=== PATIENT | male | born 1945 | race African-American/Black ===

== ENCOUNTER → 2016-10-10 | Emergency (ER) | payer OTHER, BC ==
[~2016-10-10] MED LIST: ALLOPURINOL 100 MG TABLET (FP) PO SCH; ASPIRIN 81 MG CHEWABLE TABLETS ONE; ASPIRIN 81 MG CHEWABLE TABLETS PO ONE; ASPIRIN 81 MG CHEWABLE TABLETS PO SCH; ATORVASTATIN CA 20 MG TABLET (FP) PO SCH; HEPARIN NA (PORCINE) 5,000 UNITS/ML 1ML VIAL SQ SCH; HYDROCHLOROTHIAZIDE 12.5 MG CAPSULE (FP) PO SCH; LATANOPROST 0.005% OPHTH SOLN 2.5ML BOTTLE OU SCH; LOSARTAN POTASSIUM 50 MG TABLET (FP) PO SCH; METOPROLOL SUCCINATE 100 MG TAB.SR.24H (FP) PO SCH; PANTOPRAZOLE 20 MG TABLET (FP) PO SCH; PATIENT'S OWN MEDICATION (NON-FORMULARY) (Losartan/Hydrochlorothiazide [Losartan-Hctz 100- PO SCH
[2016-10-10 13:31] VITALS: TEMP 98; BMI 28.5
--- NOTE | 2016-10-10 14:27 | PDOC ---
History of Present Illness - History of Present Illness Initial Comments: 10/10/16 19:05 Patient is a 71 year old male with significant medical hx of CAD s/p stent x1. HTN, and HLD who has been sent to the ED by PMD for abnormal stress test. The patient had a treadmill stress test done on 10/05; the patient states he was able to finish it to the end. Yesterday the patient received a call from his PMD who reported that his stress test results were abnormal and he needed to go to the ER. The patient complains of dehydration and states he doesnt drink enough water. Denies chest pain, shortness of breath, pain, nausea, vomiting, dyspnea, or lightheadedness. PMD: Maurice Agarwal MD <Anastasiya Zuleta - Last Filed: 10/10/16 19:06> <Clifford Garrett - Last Filed: 10/10/16 20:00> - General Chief Complaint: Revisit,Radiology Variance Stated Complaint: (PCP SENT) STRESS TEST Time Seen by Provider: 10/10/16 14:21 Past History <Anastasiya Zuleta - Last Filed: 10/10/16 19:06> - Psycho/Social/Smoking Cessation Hx Suicidal Ideation: No Smoking History: Never smoked <Clifford Garrett - Last Filed: 10/10/16 20:00> - Past Medical History Allergies/Adverse Reactions: Allergies Allergy/AdvReac Type Severity Reaction Status Date / Time No Known Allergies Allergy Verified 10/10/16 13:25 Home Medications: Ambulatory Orders Allopurinol [Zyloprim -] 100 mg PO DAILY 10/10/16 Aspirin [ASA -] 81 mg PO DAILY 10/10/16 Atorvastatin Ca [Lipitor] 20 mg PO HS 10/10/16 Losartan/Hydrochlorothiazide [Losartan-Hctz 100-12.5 mg Tab] 1 each PO DAILY 10/23 Metoprolol Succinate [Toprol Xl -] 100 mg PO DAILY 10/10/16 Omeprazole 20 mg PO DAILY 10/10/16 Travoprost [Travatan Z] 1 drop OU DAILY 10/10/16 Review of Systems - Review of Systems Comments:: 10/10/16 19:05 CONSTITUTIONAL: Reported: Dehydrated No reported: Fever, Chills, Diaphoresis, Generalized Weakness, Malaise, Loss of Appetite HEENT: No reported: Rhinorrhea, Nasal Congestion, Throat Pain, Throat Swelling, Difficulty Swallowing, Mouth Swelling, Ear Pain, Eye Pain, Visual Changes CARDIOVASCULAR: No reported: Chest Pain, Syncope, Palpitations, Irregular Heart Rate, Lightheadedness, Peripheral Edema RESPIRATORY: No reported: Cough, Shortness of Breath, SOB with Exertion, Orthopnea, Wheezing , Stridor, Hemoptysis GASTROINTESTINAL: No reported: Abdominal pain, Abdominal Distension, Nausea, Vomiting, Diarrhea, Constipation, Melena, Hematochezia GENITOURINARY: No reported: Dysuria, Frequency, Urgency, Hesitancy, Flank Pain, Genital Pain MUSCULOSKELETAL: No reported: Myalgia, Arthralgia, Joint Swelling, Back pain, Neck Pain SKIN: No reported: Rash, Itching, Pallor HEMEATOLOGIC/IMMUNOLOGIC: No reported: Easy Bleeding, Easy Bruising, Lymphadenopathy, Frequent infections ENDOCRINE: No reported: Unexplained Weight Gain, Unexplained Weight Loss, Heat Intolerance , Cold Intolerance NEUROLOGIC: No reported: Headache, Focal Weakness, Paresthesias, Vertigo, Lightheadedness, Unsteady Gait, Seizure, Mental Status Changes, Incontinence PSYCHIATRIC: No reported: Anxiety, Depression <Anastasiya Zuleta - Last Filed: 10/10/16 19:06> *Physical Exam - Vital Signs Last Vital Signs Temp Pulse Resp BP Pulse Ox 98 F 83 19 144/88 99 10/10/16 13:26 10/10/16 13:26 10/10/16 13:26 10/10/16 13:26 10/10/16 13:26 - Physical Exam Comments: 10/10/16 19:05 GENERAL: The patient is awake, alert, and fully oriented, Nontoxic - in no acute distress. HEAD: Normocephalic, atraumatic. EYES: extraocular movements intact, sclera anicteric, conjunctiva clear. ENT: Normal voice, Moist mucous membranes. NECK: Normal range of motion, supple LUNGS: Breath sounds equal, clear to auscultation bilaterally. No wheezes, no rhonchi, no rales. HEART: Regular rate and rhythm, normal S1 and S2 without murmur, rub or gallop. ABDOMEN: Soft, nontender, normoactive bowel sounds. No guarding, no rebound. . No CVA tenderness EXTREMITIES: Normal range of motion, no edema. No clubbing or cyanosis. No cords, erythema, or tenderness. NEUROLOGICAL: No facial assymetry, Normal speech, PSYCH: Normal mood, normal affect. SKIN: Warm, Dry, normal turgor <Anastasiya Zuleta - Last Filed: 10/10/16 19:06> - Vital Signs Last Vital Signs Temp Pulse Resp BP Pulse Ox 98 F 83 19 144/88 99 10/10/16 13:26 10/10/16 13:26 10/10/16 13:26 10/10/16 13:26 10/10/16 13:26 <Clifford Garrett - Last Filed: 10/10/16 20:00> Heart Score/ECG Review - ECG Impressions Comment:: 10/10/16 19:59 Twelve-lead EKG was performed and reviewed by me. There is normal sinus rhythm with a normal rate. Rate of 77 LVH <Clifford Garrett - Last Filed: 10/10/16 20:00> ED Treatment Course - LABORATORY CBC & Chemistry Diagram: 10/10/16 14:39 10/10/16 14:39 - RADIOLOGY Radiograph Interpretation: 10/10/16 19:05 Chest X-Ray Impression: No acute pathology. Reported By: Dayton Richards MD - Consult/PCP Time Called: 13:40 Case discussed with personal care physician: Maurice Agarwal <Anastasiya Zuleta - Last Filed: 10/10/16 19:06> - LABORATORY CBC & Chemistry Diagram: 10/10/16 14:39 10/10/16 14:39 <Clifford Garrett - Last Filed: 10/10/16 20:00> Medical Decision Making - Medical Decision Making 10/10/16 15:17 71y M sent to ED for failed stress test as outpatient. pt currently asymptmatic no recent cp, sob/jefferson. will discuss with dr. burnett regarding plan 10/10/16 16:[address] burnett requests consult with dr. castaneda and kris for admission to [facility] Case discussed in detail with admitting physician including history, physical exam and ancillary studies. Admitting physician has assumed care for the patient, will follow all pending diagnostics and will complete the evaluation and treatment. 10/10/16 16:[address] Barbosa (cardiology) and dr. witt - states the pt can fu with dr. Rao as outpatient for outpatient stress. The pt states as he does not have any pain or disocmfort, he does not want to stay,e specially as the stress test was on . Offered hospitalzation for further workup but pt decilnes and he would prefer outpatient workup if possible. will dc the pt withoutptint fu with dr. Rao I discussed the physical exam findings, ancillary test results and final diagnoses with the patient. I answered all of the patient's questions. The patient was satisfied with the care received and felt comfortable with the discharge plan and treatment plan. The patient will call their primary care physician within 24 hours to arrange follow-up and will return to the Emergency Department with any new, persistent or worsening symptoms. <Clifford Garrett - Last Filed: 10/10/16 20:00> *DC/Admit/Observation/Transfer - Attestations Scribe Attestion: 10/10/16 19:06 Documentation prepared by Anastasiya Zuleta, acting as medical records receptionist for Clifford Garrett MD. <Anastasiya Zuleta - Last Filed: 10/10/16 19:06> - Discharge Dispostion Admit: No <Clifford Garrett - Last Filed: 10/10/16 20:00> Diagnosis at time of Disposition: Chest pain Qualifiers: Chest pain type: unspecified Qualified Code(s): R07.9 - Chest pain, unspecified - Discharge Dispostion Disposition: HOME Condition at time of disposition: Improved - Referrals Referrals: Maurice Agarwal MD [Primary Care Provider] - Star Rao MD [Staff Physician] - - Patient Instructions Printed Discharge Instructions: DI for Chest Pain Additional Instructions: Return to the emergency department immediately with ANY new, persistent or worsening symptoms. You MUST call and follow up with hematology nurse tomorrow for further evaluation of your symptoms. Results were discussed with you. Please make sure your doctor reviews the results of your emergency evaluation.
[2016-10-10 14:45] VITALS: BP 155/86; PULSE 76
[2016-10-10 15:32] LABS: BASOPHIL 0.2 % (0-2.0); EOSINOPHIL 1.8 % (0-4.5); MCHC 33.4 g/dl (32.0-35.9); MEAN CELL VOLUME 98.8 fl (80-96); MEAN PLT VOLUME 8.9 fl (7.5-11.1); NEUTROPHILS 55.4 % (42.8-82.8); PLATELET COUNT 190 K/MM3 (134-434); RDW 13.6 % (11.9-15.9); WHITE BLOOD COUNT 7.2 K/mm3 (4.0-10.0)
[2016-10-10 15:43] LABS: INR 0.99 (0.82-1.09); PROTHROMBIN TIME (PATIENT) 10.9 SEC (9.98-11.88)
[2016-10-10 16:13] LABS: ANION GAP 10 (8-16); BILIRUBIN,TOTAL 0.5 mg/dL (0.2-1.0); CALCIUM 9.5 mg/dL (8.5-10.1); CO2 31 mmol/L (21-32); CREATININE 1.4 mg/dL (0.7-1.3); GLUCOSE,RANDOM 92 mg/dL (74-106); MAGNESIUM 2.1 mg/dL (1.8-2.4); SGOT/AST 38 U/L (15-37); TOT PROT 7.9 g/dl (6.4-8.2)
[2016-10-10 16:21] LABS: ALK PHOS 77 U/L (45-117); SGPT/ALT 27 U/L (12-78); TROPONIN I < 0.02 ng/ml (0.00-0.05)
--- NOTE | 2016-10-10 17:25 | EKG ---
Test Reason : Blood Pressure : / mmHG Vent. Rate : 077 BPM Atrial Rate : 077 BPM P-R Int : 148 ms QRS Dur : 094 ms QT Int : 396 ms P-R-T Axes : 046 045 039 degrees QTc Int : 448 ms NORMAL SINUS RHYTHM POSSIBLE LEFT ATRIAL ENLARGEMENT LEFT VENTRICULAR HYPERTROPHY ABNORMAL ECG NO PREVIOUS ECGS AVAILABLE Confirmed by JANNY REBOLLEDO, MARGI ([id number]) on 10/10/2016 5:25:00 PM Referred By: Confirmed By:MARGI SOLIMAN MD
== END | disposition home or self-care (01) ==
LOC: JER 13:14
DX: R07.9 Chest pain, unspecified (principal); R94.39 Abnormal result of other cardiovascular function study; I25.10 Atherosclerotic heart disease of native coronary artery without angina pectoris; I10 Essential (primary) hypertension; Z95.5 Presence of coronary angioplasty implant and graft; E78.00 Pure hypercholesterolemia, unspecified
CPT/HCPCS: 36415; 71010-TC; 80053; 82550; 82553; 83735; 84484; 85025; 85610; 93005; 93010; 99283-25